=== PATIENT | male | born 1985 | race American Indian/Alaskan Native ===

== ENCOUNTER 2018-09-07 01:17 | Emergency (ER) | payer OTHER ==
[2018-09-07 01:17] VITALS: BMI 23.6
[2018-09-07 01:42] VITALS: O2SAT 97
[2018-09-07] MEDS ORDERED: Naproxen 500 MG TAB PO ONE (02:17)
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
[2018-09-07 03:56] VITALS: BP 138/90; PULSE 70; RESP 16; TEMP 98.1
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
== END 2018-09-07 03:55 | disposition home or self-care (01) ==
LOC: H.ER 01:17
DX: M54.5 Low back pain (principal)